=== PATIENT | female | born 1975 | race Caucasian/White ===

== ENCOUNTER → 2018-03-17 | Outpatient (CLI) | payer BC ==
[2018-03-17 17:17] LABS: ALBUMIN 3.9 GM/DL (3.2-5.2); BLOOD UREA NITROGEN 9 MG/DL (7-18); CALCIUM LEVEL 8.9 MG/DL (8.5-10.1); CARBON DIOXIDE LEVEL 26 MEQ/L (21-32); CHLORIDE LEVEL 101 MEQ/L (98-107); CREATININE FOR GFR 0.78 MG/DL (0.55-1.30); GLOMERULAR FILTRATION RATE > 60.0 (>58); GLUCOSE, FASTING 114 MG/DL (70-100); POTASSIUM SERUM 3.9 MEQ/L (3.5-5.1); SODIUM LEVEL 136 MEQ/L (136-145)
== END ==
LOC: M LRY 13:05
PROVIDERS: ATTEND Physician Assistant
DX: I10 Essential (primary) hypertension (principal)

== ENCOUNTER → 2018-09-25 | Outpatient (CLI) | payer BC ==
--- NOTE | 2018-09-25 11:37 | REPMRS ---
Patient History Family history of throat cancer in paternal uncle, throat cancer in paternal aunt, brain cancer in paternal cousin, stomach cancer in father. Maternal Grandmother with breast cancer. 3D TOMOSYNTHESIS WAS PERFORMED. The Apoorva Hansen lifetime risk for breast cancer is 10.3%. Digital Mammo Screening Bilat: September 25, 2018 - Exam #: [id number] Bilateral CC and MLO view(s) were taken. Technologist: Beatriz Frank, Technologist No prior studies available for comparison. FINDINGS: The breast tissue is heterogeneously dense. This may lower the sensitivity of mammography. There is no evidence of cancer on this mammogram. Assessment: BI-RADS/ACR category 2 mammogram. Benign Findings. Recommendation Routine screening mammogram of both breasts in 1 year (for women over age 40). This mammogram was interpreted with the aid of an FDA-approved computer-aided dectection system. Electronically Signed By: Tanner Wilkes MD 09/25/18 [id number]
== END ==
LOC: M RAD 10:29
PROVIDERS: ATTEND Nurse Practitioner Women's Health
DX: Z12.31 Encounter for screening mammogram for malignant neoplasm of breast (principal); Z80.3 Family history of malignant neoplasm of breast

== ENCOUNTER → 2018-10-12 | Outpatient (REF) | payer BC | LOC: M SFHCLERA 14:31 | PROVIDERS: ATTEND Student in an Organized Health Care Education/Training Program | DX: R30.0 Dysuria (principal) ==

== ENCOUNTER → 2020-04-20 | Outpatient (REF) | LOC: M LAB 11:00 | PROVIDERS: ATTEND Nurse Practitioner Adult Health | DX: Z00.00 Encounter for general adult medical examination without abnormal findings (principal) ==

== ENCOUNTER 2023-09-22 22:17 | Observation (INO) | payer BC ==
[~2023-09-22] VITALS: Ht 162.6 cm; Wt 77.1 kg
[2023-09-23] VITALS (9 sets, daily range): BP systolic 124–155; BP diastolic 76–91; TEMP 97.7–98.6; O2SAT 90–96
[2023-09-23] MEDS: MORPHINE 4 MG/ML 1ML VIAL IV ONE ×2 (00:46→02:32)
[2023-09-23] MEDS: fentaNYL 100 MCG/2 ML INJECTION IV ONE ×2 (01:10→01:33)
[2023-09-23] MEDS: MIDAZOLAM INJ 2MG/2ML VIAL IV STA (01:16)
[2023-09-23] MEDS: MIDAZOLAM INJ 2MG/2ML VIAL IV ONE ×2 (01:24→01:30)
[2023-09-23] MEDS ORDERED: SERT25TA21 PO (02:20)
[2023-09-23] MEDS ORDERED: VALS160T2 PO (02:20)
[2023-09-23] MEDS ORDERED: ATEN25TA PO (02:20)
[2023-09-23] MEDS ORDERED: HOME MED LIST COMPLETE! XX SCH (02:25)
[2023-09-23 02:28] LABS: BASO # 0.1 10^3/uL (0.0-0.2); BASO % 0.5 % (0.0-1.0); EOS % 0.2 % (0.0-3.0); HEMATOCRIT 42.7 % (36.0-47.0); HEMOGLOBIN 14.7 g/dl (12.0-15.5); LYMPH # 1.8 10^3/uL (1.5-5.0); LYMPH % 9.7 % (24.0-44.0); MEAN CORPUSCULAR HEMOGLOBIN 32.2 pg (27.0-33.0); MEAN CORPUSCULAR HGB CONC 34.4 g/dl (32.0-36.5); MEAN CORPUSCULAR VOLUME 93.6 fl (80.0-96.0); MONO # 1.1 10^3/uL (0.0-0.8); MONO % 5.7 % (2.0-8.0); NEUTROPHILS # 15.8 10^3/uL (1.5-8.5); NEUTROPHILS % 83.5 % (36.0-66.0); PLATELET COUNT, AUTOMATED 298 10^3/uL (150-450); RED BLOOD COUNT 4.56 10^6/uL (4.00-5.40); WHITE BLOOD COUNT 18.9 10^3/uL (4.0-10.0)
[2023-09-23] MEDS ORDERED: MOM 30ML SUSPENSION UDC PO PRN (02:35)
[2023-09-23] MEDS ORDERED: MORPHINE 2 MG/ML 1ML VIAL IV PRN (02:35)
[2023-09-23] MEDS ORDERED: NALOXONE INJ 0.4MG/1ML VIAL IV PRN (02:35)
[2023-09-23] MEDS ORDERED: ACETAMINOPHEN TAB 650MG DOSE (2X325MG) PO PRN (02:35)
[2023-09-23] MEDS ORDERED: MAALOX 30 ML SUSP *UDC PO PRN (02:35)
[2023-09-23 03:07] LABS: ALBUMIN 4.2 G/DL (3.2-5.2); ALKALINE PHOSPHATASE 76 U/L (46-116); ALT/SGPT 23 U/L (7.0-40); AST/SGOT 16 U/L (<34); BILIRUBIN,DIRECT < 0.1 MG/DL (<0.4); BILIRUBIN,TOTAL 0.3 MG/DL (0.3-1.2); BLOOD UREA NITROGEN 11 MG/DL (9-23); CALCIUM LEVEL 8.9 MG/DL (8.5-10.1); CARBON DIOXIDE LEVEL 29 MMOL/L (20-31); CHLORIDE LEVEL 106 MMOL/L (98-107); CREATININE FOR GFR 0.86 MG/DL (0.55-1.30); GLOMERULAR FILTRATION RATE > 60.0 (>58); GLUCOSE, FASTING 118 MG/DL (60-100); MAGNESIUM LEVEL 1.9 MG/DL (1.8-2.4); SODIUM LEVEL 139 MMOL/L (136-145)
[2023-09-23] MEDS: METHOCARBAMOL 1,000 MG/10 ML VIAL IV ONE (03:16)
[2023-09-23 03:33] LABS: PROCALCITONIN <0.04 ng/ml
[2023-09-23] MEDS: ACETAMINOPHEN *IV* 1,000 MG in IV 1 EA IV ONE (03:47)
[2023-09-23] MEDS: LR 1,000 ML IV SCH (05:05)
[2023-09-23] MEDS: MORPHINE 4 MG/ML 1ML VIAL IV PRN (06:48)
[2023-09-23] MEDS: DOCUSATE SODIUM 100MG CAPSULE PO SCH (08:08)
[2023-09-23] MEDS: VALSARTAN 80 MG TAB (DIOVAN) PO SCH (08:08)
[2023-09-23] MEDS: hydroCHLOROthiazide 12.5 MG CAPSULE PO SCH (08:08)
[2023-09-23] MEDS ORDERED: LIDOCAINE 2% 100MG/5ML SDV (FOR ANES.) As Ordered ONE (16:29)
[2023-09-23] MEDS ORDERED: propofoL 200 MG/20 ML VIAL As Ordered ONE (16:29)
[2023-09-23] MEDS ORDERED: MIDAZOLAM INJ 2MG/2ML VIAL As Ordered ONE (16:29)
[2023-09-23] MEDS ORDERED: HYDROmorphone HCL 2MG/ML 1ML VIAL As Ordered ONE (16:29)
[2023-09-23] MEDS ORDERED: ONDANSETRON 4MG 2ML VIAL As Ordered ONE (16:29)
[2023-09-23] MEDS ORDERED: KETOROLAC 60MG 2ML VIAL As Ordered ONE (16:29)
[2023-09-23] MEDS ORDERED: ACETAMINOPHEN 1000MG 100ML IV BAG As Ordered ONE (16:29)
[2023-09-23] MEDS ORDERED: ROCURONIUM BROMIDE 50MG/5ML VIAL As Ordered ONE (16:49)
[2023-09-23] MEDS ORDERED: SUGAMMADEX SODIUM 500 MG/5 ML VIAL (BRIDION) As Ordered ONE (16:49)
[2023-09-23] MEDS: ceFAZolin 2 GM/D5W 50 ML IV BAG As Ordered ONE (17:05)
[2023-09-23] MEDS: TRANEXAMIC ACID 100 MG/ML 10ML VIAL As Ordered ONE (17:09)
[2023-09-23] MEDS: VANCOMYCIN 1000MG/20ML VIAL As Ordered ONE (17:34)
[2023-09-23] MEDS ORDERED: fentaNYL 100 MCG/2 ML INJECTION IV PRN (18:10)
[2023-09-23] MEDS ORDERED: ONDANSETRON 4MG 2ML VIAL IV PRN (18:10)
[2023-09-23] MEDS ORDERED: oxyCODONE 5MG TAB PO PRN (18:10)
[2023-09-23] MEDS ORDERED: HYDROMORPHONE HCL 0.5 MG/ 0.5 ML SYRINGE IV PRN (18:10)
[2023-09-23] MEDS: atenoloL 25 MG TAB PO SCH (20:12)
[2023-09-23] MEDS: SERTRALINE HCL 25 MG TABLET PO SCH (20:12)
[2023-09-24 00:30] VITALS: BP 138/73; TEMP 97.7; O2SAT 93
[2023-09-24 04:30] VITALS: BP 119/69; TEMP 97.9; O2SAT 90
[2023-09-24] MEDS ORDERED: PERCOCET 5MG/325MG TAB PO PRN ×2 (07:20)
[2023-09-24] MEDS ORDERED: SENOKOT S TAB PO PRN (07:20)
[2023-09-24] MEDS ORDERED: NALOXONE INJ 0.4MG/1ML VIAL IV PRN (07:20)
[2023-09-24 07:45] LABS: BASO % 0.1 % (0.0-1.0); HEMATOCRIT 41.9 % (36.0-47.0); HEMOGLOBIN 14.1 g/dl (12.0-15.5); LYMPH # 1.3 10^3/uL (1.5-5.0); LYMPH % 8.2 % (24.0-44.0); MEAN CORPUSCULAR HEMOGLOBIN 31.5 pg (27.0-33.0); MEAN CORPUSCULAR HGB CONC 33.7 g/dl (32.0-36.5); MEAN CORPUSCULAR VOLUME 93.7 fl (80.0-96.0); MONO % 6.1 % (2.0-8.0); NEUTROPHILS # 13.2 10^3/uL (1.5-8.5); NEUTROPHILS % 85.3 % (36.0-66.0); PLATELET COUNT, AUTOMATED 246 10^3/uL (150-450); RED BLOOD COUNT 4.47 10^6/uL (4.00-5.40); WHITE BLOOD COUNT 15.5 10^3/uL (4.0-10.0)
[2023-09-24 08:09] LABS: BLOOD UREA NITROGEN 9 MG/DL (9-23); CALCIUM LEVEL 8.7 MG/DL (8.5-10.1); CARBON DIOXIDE LEVEL 29 MMOL/L (20-31); CHLORIDE LEVEL 103 MMOL/L (98-107); CHOLESTEROL LEVEL 161 MG/DL (<200); CHOLESTEROL RISK RATIO 3.16 (<5); GLOMERULAR FILTRATION RATE > 60.0 (>58); GLUCOSE, FASTING 146 MG/DL (60-100); HDL CHOLESTEROL 50.8 MG/DL (>40); LDL CHOLESTEROL 99.8 MG/DL (<100); NON-HDL-C 110.2 MG/DL; POTASSIUM SERUM 3.6 MMOL/L (3.5-5.1); SODIUM LEVEL 137 MMOL/L (136-145); TRIGLYCERIDES LEVEL 52 MG/DL (<150)
[2023-09-24 08:11] VITALS: BP 143/85; TEMP 98.1; O2SAT 93
[2023-09-24 09:00] VITALS: O2SAT 91
[2023-09-24 09:25] VITALS: BP 120/69
[2023-09-24] MEDS ORDERED: ACET-897 PO (11:44)
[2023-09-24] MEDS ORDERED: PERCOCET PO (11:44)
[2023-09-24 12:38] VITALS: BP 134/65; TEMP 97.9; O2SAT 94
== END 2023-09-24 16:00 | disposition home or self-care (01) ==
LOC: M ED 22:17 → INTOOBSV 09-23 02:35 → M ED INP 09-23 02:35 → M MS5PR 09-23 08:35
PROVIDERS: ADMIT Family Medicine; ATTEND General Practice
DX: S82.851A Displaced trimalleolar fracture of right lower leg, initial encounter for closed fracture (principal); W01.0XXA Fall on same level from slipping, tripping and stumbling without subsequent striking against object, initial encounter; X50.1XXA Overexertion from prolonged static or awkward postures, initial encounter; Y92.89 Other specified places as the place of occurrence of the external cause; Y93.11 Activity, swimming; Y99.9 Unspecified external cause status; R11.0 Nausea; D72.829 Elevated white blood cell count, unspecified; I10 Essential (primary) hypertension; F41.9 Anxiety disorder, unspecified; Z91.040 Latex allergy status; F17.210 Nicotine dependence, cigarettes, uncomplicated; Z82.49 Family history of ischemic heart disease and other diseases of the circulatory system; Z80.0 Family history of malignant neoplasm of digestive organs; Z98.51 Tubal ligation status; Z79.899 Other long term (current) drug therapy
CPT/HCPCS: 20690; 27840; 36415; 73590; 73600; 73610; 73700; 76000; 80048; 80061; 80076; 83735; 84145; 85025; 96374; 96375; 96376; 97116; 97161; 99284; C1713; J0131; J0665; J0690; J1100; J1170; J1885; J2250; J2405; J2800; J3010

== ENCOUNTER 2023-10-03 06:13 | Day surgery (SDC) | payer BC ==
[~2023-10-03] VITALS: Ht 165.1 cm; Wt 77.1 kg
[~2023-10-03 06:13] MED LIST: ACET-897 PO; ATEN25TA PO; PERCOCET PO; SERT25TA21 PO; VALS160T2 PO
[2023-10-03] MEDS ORDERED: LIDOCAINE 2% 100MG/5ML SDV (FOR ANES.) As Ordered ONE (06:54)
[2023-10-03] MEDS ORDERED: propofoL 200 MG/20 ML VIAL As Ordered ONE (06:54)
[2023-10-03] MEDS ORDERED: ROCURONIUM BROMIDE 50MG/5ML VIAL As Ordered ONE (06:54)
[2023-10-03] MEDS ORDERED: ACETAMINOPHEN 1000MG 100ML IV BAG As Ordered ONE (06:54)
[2023-10-03] MEDS ORDERED: KETOROLAC 60MG 2ML VIAL As Ordered ONE (06:55)
[2023-10-03] MEDS ORDERED: LR 1,000 ML IV SCH ×2 (06:55→10:05)
[2023-10-03] MEDS ORDERED: ONDANSETRON 4MG 2ML VIAL As Ordered ONE (06:55)
[2023-10-03] MEDS ORDERED: SUGAMMADEX SODIUM 500 MG/5 ML VIAL (BRIDION) As Ordered ONE (07:04)
[2023-10-03] MEDS ORDERED: MIDAZOLAM INJ 2MG/2ML VIAL As Ordered ONE (07:06)
[2023-10-03] MEDS ORDERED: HYDROmorphone HCL 2MG/ML 1ML VIAL As Ordered ONE (07:06)
[2023-10-03] MEDS ORDERED: fentaNYL 100 MCG/2 ML INJECTION As Ordered ONE (07:06)
[2023-10-03] MEDS: ceFAZolin SOD 2 GM in IV 1 EA IV ONE (07:15)
[2023-10-03] MEDS: ceFAZolin 2 GM/D5W 50 ML IV BAG As Ordered ONE (08:00)
[2023-10-03] MEDS ORDERED: GLYCOPYRROLATE INJ 0.2 MG/ML 2 ML VIAL As Ordered ONE (08:05)
[2023-10-03] MEDS ORDERED: fentaNYL 100 MCG/2 ML INJECTION IV PRN (10:05)
[2023-10-03] MEDS ORDERED: ECOT81TA5 PO (10:31)
[2023-10-03] MEDS ORDERED: OXYC1TAB23 PO (10:31)
[2023-10-03] MEDS: ONDANSETRON 4MG 2ML VIAL IV PRN (10:43)
[2023-10-03] MEDS: HYDROMORPHONE HCL 0.5 MG/ 0.5 ML SYRINGE IV PRN (10:44)
[2023-10-03] MEDS: oxyCODONE 5MG TAB PO PRN (10:44)
[2023-10-03 11:52] VITALS: BP 135/75; TEMP 98.9; O2SAT 95
== END 2023-10-03 12:23 | disposition home or self-care (01) ==
LOC: M SDC 06:13
PROVIDERS: ATTEND Orthopaedic Surgery
DX: S82.851A Displaced trimalleolar fracture of right lower leg, initial encounter for closed fracture (principal); X58.XXXA Exposure to other specified factors, initial encounter; Y93.9 Activity, unspecified; Y92.9 Unspecified place or not applicable; I10 Essential (primary) hypertension; F17.210 Nicotine dependence, cigarettes, uncomplicated; Z79.899 Other long term (current) drug therapy; Z88.2 Allergy status to sulfonamides; Z91.040 Latex allergy status

== ENCOUNTER → 2023-10-16 | Outpatient (CLI) | payer BC ==
[~2023-10-16] MED LIST changes: +ECOT81TA5 PO; +OXYC1TAB23 PO
== END ==
LOC: M SOG 08:01
PROVIDERS: ATTEND Physician Assistant
DX: S82.851A Displaced trimalleolar fracture of right lower leg, initial encounter for closed fracture (principal); Y93.9 Activity, unspecified; Y92.9 Unspecified place or not applicable

== ENCOUNTER → 2023-11-13 | Outpatient (CLI) | payer BC | LOC: M SOG 07:25 | PROVIDERS: ATTEND Physician Assistant | DX: S82.851A Displaced trimalleolar fracture of right lower leg, initial encounter for closed fracture (principal); W18.30XA Fall on same level, unspecified, initial encounter; Y92.009 Unspecified place in unspecified non-institutional (private) residence as the place of occurrence of the external cause ==

== ENCOUNTER → 2023-12-11 | Outpatient (CLI) | payer BC | LOC: M SOG 07:31 | PROVIDERS: ATTEND Physician Assistant | DX: S82.851A Displaced trimalleolar fracture of right lower leg, initial encounter for closed fracture (principal); W18.30XA Fall on same level, unspecified, initial encounter; Y92.009 Unspecified place in unspecified non-institutional (private) residence as the place of occurrence of the external cause ==

== ENCOUNTER → 2024-02-17 | Outpatient (CLI) | payer BC | LOC: M SOG 07:56 | PROVIDERS: ATTEND Physician Assistant | DX: S82.851A Displaced trimalleolar fracture of right lower leg, initial encounter for closed fracture (principal) ==

== ENCOUNTER → 2024-03-11 | Outpatient (CLI) | payer BC | LOC: M SOG 07:56 | PROVIDERS: ATTEND Physician Assistant | DX: S82.851A Displaced trimalleolar fracture of right lower leg, initial encounter for closed fracture (principal) ==